=== PATIENT | female | born 1960 | race Caucasian/White ===

== ENCOUNTER 2017-06-13 09:16 | Outpatient (CLI) | payer BC | END 2017-06-13 09:17 | disposition home or self-care (01) | LOC: BICMAMMO 09:16 | PROVIDERS: ATTEND Family Medicine | DX: Z12.31 Encounter for screening mammogram for malignant neoplasm of breast (principal) | CPT/HCPCS: 77063; 77067 ==

== ENCOUNTER 2017-06-20 16:16 | Outpatient (CLI) | payer BC | END 2017-06-20 16:17 | disposition home or self-care (01) | LOC: BICMRI 16:16 | PROVIDERS: ATTEND Orthopaedic Surgery | DX: M47.22 Other spondylosis with radiculopathy, cervical region (principal); M99.81 Other biomechanical lesions of cervical region | CPT/HCPCS: 72141 ==

== ENCOUNTER 2017-07-16 15:38 | Outpatient (CLI) | payer BC ==
--- NOTE | 2017-07-16 16:46 | RAD ---
THREE VIEWS CERVICAL SPINE INCLUDING FLEXION AND EXTENSION VIEWS 07/16/17 HISTORY: Cervical HNP, patient states numbness in left fingers and chronic neck pain. COMPARISON: None available. FINDINGS: C1 to C7 is seen on the lateral view. T1 vertebral body is obscured. Vertebral body heights and inter vertebral disc spaces are within normal limits. No fracture or subluxation is appreciated. No abnorma l translational motion is seen between flexion and extension views. There are degenerative changes pr esent at C6-7 level with narrowing of the intervertebral disc space and osteophytes anteriorly. Preve rtebral soft tissues are within normal limits. IMPRESSION: 1. Obscuration of the T1 vertebral body, but there is otherwise no fracture or subluxation invol ving the cervical spine. 2. Degenerative changes at the C6-7 level. POS: [facility]
--- NOTE | 2017-07-16 18:05 | MRI ---
MRI OF LUMBAR SPINE WITHOUT CONTRAST 07/16/17 HISTORY: M51.16 - intervertebral disc disorder with radiculopathy. COMPARISON: None. FINDINGS: The kidneys are unremarkable. No hydronephrosis. No retroperitoneal adenopathy. Paraspinal musculature is normal. The background marrow signal of the lumbar spine is normal. Signal of the spinal cord is normal. The conus medullaris terminates at the mid L1 vertebral body. Levels are as follows: T12-L1: Normal. L1-2: Normal. L2-3: Mild circumferential disc bulge. Moderate facet arthropathy. The spinal canal is narrowed to ap proximately 8 mm. There is mild left moderate right sided neural foraminal narrowing. L3-4: Mild disc desiccation. Low grade circumferential disc bulge. Mild facet arthropathy. There is m oderate bilateral neural foraminal narrowing. There is abutment of the exiting right L3 nerve root. The spinal canal at this level measures approximately 1 cm. L4-5: Mild disc desiccation. Moderate facet arthropathy. Moderate to severe left and moderate right s ided neural foraminal narrowing. There is abutment of the exiting left L4 nerve root. L5-S1: Mild to moderate facet arthrosis. Low grade circumferential disc bulge. Moderate left and mild right sided neural foraminal narrowing. IMPRESSION: Mild to moderate spondylosis as described above at multiple levels with neural foraminal narrowing. S yordan canal is not significantly narrowed. POS: [facility]
== END 2017-07-16 15:39 | disposition home or self-care (01) ==
LOC: SCSMRI 15:38
PROVIDERS: ATTEND Specialist
DX: M51.16 Intervertebral disc disorders with radiculopathy, lumbar region (principal); M50.20 Other cervical disc displacement, unspecified cervical region; M47.26 Other spondylosis with radiculopathy, lumbar region; M99.83 Other biomechanical lesions of lumbar region; M47.892 Other spondylosis, cervical region
CPT/HCPCS: 72040; 72148

== ENCOUNTER 2018-04-16 08:05 | Outpatient (CLI) | payer BC ==
--- NOTE | 2018-04-16 08:59 | MRI ---
MRI CERVICAL SPINE WITHOUT CONTRAST: Date: 04/16/18 COMPARISON: None. HISTORY: Cervical radiculopathy and neck pain. Left finger numbness and tingling for 2 weeks. TECHNIQUE: Multiplanar, multisequence MR images were obtained of the cervical spine without contrast. FINDINGS: Generalized disc desiccation is seen. The vertebral bodies and intervertebral discs demonstrate juliana l height and alignment without fracture or subluxation. The visualized cord demonstrates normal signa l throughout. The craniocervical junction is unremarkable. The prevertebral and paraspinal soft tissu es are unremarkable. C2-3: Unremarkable. C3-4: A small disc osteophyte complex is seen. No posterior facet arthrosis. No central canal stenos is. Mild left neural foraminal stenosis. No right neural foraminal stenosis. C4-5: No significant bulge or protrusion. No posterior facet arthrosis. No neural foraminal or centr al canal stenosis. C5-6: A moderate disc osteophyte complex is seen. No posterior facet arthrosis. Moderate central can al stenosis. Moderate bilateral neural foraminal stenosis. C6-7: A moderate disc osteophyte complex is seen. No posterior facet arthrosis. Severe central canal stenosis. Severe bilateral neural foraminal stenosis. C7-T1: Unremarkable. IMPRESSION: Degenerative changes of the cervical spine as above. POS: [facility]
== END 2018-04-16 08:06 | disposition home or self-care (01) ==
LOC: BICMRI 08:05
PROVIDERS: ATTEND Specialist
DX: M47.22 Other spondylosis with radiculopathy, cervical region (principal)
CPT/HCPCS: 72141

== ENCOUNTER 2018-04-20 13:04 | Outpatient (CLI) | payer BC ==
--- NOTE | 2018-04-20 15:31 | MRI ---
MRI LUMBAR SPINE WITHOUT CONTRAST: HISTORY: Low back pain with tingling running down the left leg for a year. COMPARISON: 07/16/2017 TECHNIQUE: Multiplanar, multisequence MR images were obtained of the lumbar spine without contrast. FINDINGS: Generalized disk desiccation is seen. The vertebral bodies demonstrate normal height and alignment w ithout fracture or subluxation. The prevertebral and paraspinal soft tissues are unremarkable. The conus medullaris terminates normally at T12-L1. T12-L1: Unremarkable. L1-L2: Unremarkable. L2-L3: A small generalized concentric disk bulge is seen. No posterior facet arthrosis. Mild centr al canal stenosis. No neural foraminal stenosis. L3-L4: A moderate right lateral protruding is seen. No posterior facet arthrosis. No central canal stenosis. Moderate right neural foraminal stenosis. No left neural foraminal stenosis. Disk protr usion has worsened compared to the prior examination. L4-L5: A minimal generalized concentric disk bulge is seen. No posterior facet arthrosis. Mild lazarus tral canal stenosis. Mild bilateral neural foraminal stenosis. L5-S1: A small disk osteophyte complex is seen. Mild bilateral posterior facet arthrosis. Mild lazarus tral canal stenosis. Moderate left and mild right neural foraminal stenosis. IMPRESSION: Degenerative changes of the lumbar spine, as above. POS: [facility]
== END 2018-04-20 13:05 | disposition home or self-care (01) ==
LOC: TBSIIMAG 13:04
PROVIDERS: ATTEND Specialist
DX: M43.16 Spondylolisthesis, lumbar region (principal); M47.816 Spondylosis without myelopathy or radiculopathy, lumbar region
CPT/HCPCS: 72148

== ENCOUNTER 2018-05-04 10:28 | Outpatient (CLI) | payer BC ==
[2018-05-04 11:49] LABS: Hemoglobin 14.3 g/dL (12.0-16.0); Mean Corpuscular HGB CONC 34.4 g/dL (32.0-36.0); Mean Corpuscular Hemoglobin 29.3 pg (27.0-31.0); Mean Corpuscular Volume 85.3 fL (78.0-98.0); Mean Platelet Volume 8.8 fL (7.4-10.4); Platelet Count 188 thou/uL (130-400); RBC Distribution Width 12.7 % (11.5-14.5); Red Blood Cell (RBC) Count 4.87 mill/uL (4.20-5.40); White Blood Cell (WBC) Count 6.6 thou/uL (4.8-10.8)
[2018-05-04 11:54] LABS: Prothrombin Time 13.2 SEC (12.0-14.7)
[2018-05-04 11:55] LABS: PTT 29.4 SEC (22.9-36.1)
[2018-05-04 12:09] LABS: Anion Gap 13 mmol/L (10-20); BUN (Urea Nitrogen) 10 mg/dL (9.8-20.1); Calc. Creatinine Clearance 0 mL/min (70-130); Calcium 9.5 mg/dL (7.8-10.44); Carbon Dioxide 24 mmol/L (22-29); Chloride 104 mmol/L (98-107); Estimated GFR-MDRD 59; Glucose 97 mg/dL (70-105); Potassium 3.3 mmol/L (3.5-5.1); Sodium 138 mmol/L (136-145)
--- NOTE | 2018-05-04 17:27 | EKG ---
Test Reason : Blood Pressure : / mmHG Vent. Rate : 070 BPM Atrial Rate : 070 BPM P-R Int : 152 ms QRS Dur : 088 ms QT Int : 456 ms P-R-T Axes : 021 025 -24 degrees QTc Int : 492 ms Normal sinus rhythm Nonspecific T wave abnormality Prolonged QT Abnormal ECG When compared with ECG of 08-MAR-2016 14:07, No significant change was found Confirmed by KIRA ALAMO ([id number]) on 05/04/2018 5:27:00 PM Referred By: JENNIE Confirmed By:KIRA ALAMO
== END 2018-05-04 10:29 | disposition home or self-care (01) ==
LOC: LABBT 10:28
PROVIDERS: ATTEND Surgery
DX: Z01.818 Encounter for other preprocedural examination (principal); M54.12 Radiculopathy, cervical region; M48.02 Spinal stenosis, cervical region
CPT/HCPCS: 80048; 85027; 85610; 85730; 93005; 93010

== ENCOUNTER 2018-05-07 09:18 | Day surgery (SDC) | payer BC ==
[2018-05-04 11:07] VITALS: BMI 28.8
[2018-05-07] MEDS ORDERED: CEFAZOLIN 2 GM/50 ML BAG ONE (10:48)
[2018-05-07] MEDS ORDERED: Fentanyl 100 MCG/2 ML VIAL ONE ×4 (11:17→17:41)
[2018-05-07] MEDS ORDERED: Propofol 1,000 MG/100 ML VIAL IV ONE (13:49)
[2018-05-07] MEDS ORDERED: Thrombin 5000 UNITS/5 ML VIAL ONE (13:53)
[2018-05-07] MEDS ORDERED: Sodium Chloride 0.9% 10 ML ONE (14:00)
[2018-05-07] MEDS ORDERED: Ondansetron PF 4 MG/2 ML Vial ONE (16:23)
[2018-05-07] MEDS ORDERED: Lidocaine 1% PF 5 ML VIAL ONE (16:23)
[2018-05-07] MEDS ORDERED: Glycopyrrolate 0.2 MG/ML 5 ML SYRINGE ONE (16:23)
[2018-05-07] MEDS ORDERED: Dexamethasone 20 MG/5 ML VIAL ONE (16:23)
[2018-05-07] MEDS ORDERED: Fleet Enema 133 ML BOT PR PRN (16:35)
[2018-05-07] MEDS ORDERED: Mag-Al 1200 mg/1200 mg/30 ML UDCUP PO PRN (16:35)
[2018-05-07] MEDS ORDERED: Acetaminophen 325 MG TAB PO PRN (16:35)
[2018-05-07] MEDS ORDERED: traMADol HCl 50 MG TAB PO PRN (16:35)
[2018-05-07] MEDS ORDERED: Morphine 4 MG/ML VIAL SLOW IVP PRN (16:35)
[2018-05-07] MEDS ORDERED: HYDROcodone/Acetaminophen 7.5/325 mg Tablet PO PRN (16:35)
[2018-05-07] MEDS ORDERED: Milk Of Magnesia 30 ML UDCUP PO PRN (16:35)
[2018-05-07] MEDS ORDERED: Bisacodyl 10 MG SUPP PR PRN (16:35)
[2018-05-07] MEDS ORDERED: Ondansetron HCl/PF 4 MG in Sodium Chloride 0.9% 50 ML IVPB PRN (16:37)
[2018-05-07] MEDS ORDERED: Lorazepam 1 MG TAB PO PRN (16:38)
[2018-05-07] MEDS ORDERED: Promethazine HCl 25 MG/ML VIAL SLOW IVP PRN (16:46)
[2018-05-07] MEDS ORDERED: Promethazine HCl 25 MG/ML VIAL IM PRN (16:46)
[2018-05-07] MEDS ORDERED: Ondansetron HCl/PF 4 MG/2 ML Vial IVP PRN (16:46)
[2018-05-07] MEDS ORDERED: PACU-Morphine 4MG/ML VIAL SLOW IVP PRN (16:46)
[2018-05-07] MEDS ORDERED: Morphine Sulfate 2 MG/ML SYRINGE SLOW IVP PRN (16:46)
[2018-05-07] MEDS ORDERED: HYDROmorphone 2 MG/ML VIAL SLOW IVP PRN (16:46)
[2018-05-07] MEDS ORDERED: Albuterol Sulfate 2.5 mg/3 ml Neb ONE (17:59)
[2018-05-07] MEDS ORDERED: Naloxone HCl 0.4 mg/ml Vial ONE (18:04)
[2018-05-07] MEDS: Sodium Chloride 0.9% 1,000 ML IV SCH (20:40)
[2018-05-07] MEDS: CEFAZOLIN 2 GM/50 ML BAG IVPB SCH (20:40)
[2018-05-07] MEDS: tiZANidine HCl 4 MG TAB PO PRN (20:48)
[2018-05-07] MEDS: Acetaminophen/Codeine 30-300mg Tablet PO PRN (20:48)
[2018-05-07] MEDS ORDERED: Montelukast Sodium 10 mg Tablet PO SCH (21:00)
[2018-05-08] MEDS: Sodium Chloride 0.9% 1,000 ML IV SCH ×2 (01:02→09:23)
[2018-05-08] MEDS: Acetaminophen/Codeine 30-300mg Tablet PO PRN ×3 (01:33→11:22)
[2018-05-08] MEDS: CEFAZOLIN 2 GM/50 ML BAG IVPB SCH ×2 (03:31→11:22)
[2018-05-08] MEDS: tiZANidine HCl 4 MG TAB PO PRN ×2 (05:32→11:21)
[2018-05-08] MEDS ORDERED: Diltiazem HCl CD 300 mg Capsule PO SCH (09:00)
[2018-05-08] MEDS ORDERED: Multivit, Therapeutic 1 TAB PO SCH (09:00)
[2018-05-08] MEDS ORDERED: Escitalopram Oxalate 20 mg Tablet PO SCH (09:00)
[2018-05-08] MEDS ORDERED: Atorvastatin Calcium 10 MG TAB PO SCH (09:00)
[2018-05-08 12:15] VITALS: BP 134/66; TEMP 98.5
--- NOTE | 2018-05-08 13:20 | PRG ---
DATE OF SERVICE: 05/08/2018 Ms. Parrish is postoperative day #1, C5 to C7 ACDF. She is doing very well. She states there is resolution in her arm pain. She has moderate dysphonia, but is swallowing. Her drain output was 50 mL last night and we will watch her this morning taper down or remove the drain, we will plan for dismissal. We went over both interim postoperative issues and neurologically, she is doing very well. Job ID: [id number]
--- NOTE | 2018-05-10 21:29 | OP ---
DATE OF PROCEDURE: 05/07/2018 OPERATING ROOM: OR 12. WOUND CLASSIFICATION: Type 1 wound. RAILROAD CAR CHECKER: Ollie Álvarez PA-C. PREPROCEDURE DIAGNOSES: Cervical stenosis with neck and arm pain and cervical radiculopathy. POSTPROCEDURE DIAGNOSES: Cervical stenosis with neck and arm pain and cervical radiculopathy. PROCEDURES PERFORMED: 1. Anterior C5-C6 and C6-C7 diskectomies for decompression of spinal cord and nerve roots. 2. Preparation of the endplates for arthrodesis with placement of interbody spacer packed with graft, C5-C6 and C6-C7. 3. Anterior cervical plate and screw fixation, C5, C6, and C7. 4. Use of operating microscope for microdissection. DESCRIPTION OF PROCEDURE: After informed consent was obtained from the patient, the patient was brought to OR 12. Proper patient pause and identification were carried out. She was placed under excellent general endotracheal anesthesia and positioned supine on the OR table. All appropriate points were padded. We identified the right anterior oblique negar that would allow for approach to the C5, C6, C7 segments and this region was sterilely cleansed, prepared, and draped. Proper patient pause and identification were carried out. The wound was then opened with a combination of sharp, monopolar, and blunt dissection. We proceeded lateral to the tracheoesophageal bundle and medial to the right carotid sheath. We identified the prevertebral layer of deep cervical fascia and the longus colli muscles were identified as well and swept laterally. Retraction was placed. Microscope was brought onto the field and distraction of C5-C6 occurred and diskectomy was performed at C5-C6 with excellent decompression of the common dural tube and the bilateral C6 nerve roots. We then turned our attention to the placement of interbody spacer packed with local bone autograft obtained from same incision allograft at C5-C6 for arthrodesis. We then turned our attention to release of the distraction at C5-C6 and distraction at C6-C7 was then performed and we had excellent decompression, following diskectomy at C6-C7, of the bilateral C7 nerve roots. Copious irrigation occurred throughout. We maximized hemostasis. Interbody spacer of appropriate dimension was placed for arthrodesis, packed with graft. This was done at C5-C6 and C6-C7. Anterior cervical plate and screw fixation then occurred at C5, C6, C7, and the wound was then closed following final tightening after satisfactory hemostasis and copious irrigation. The patient then emerged from anesthesia. Job ID: [id number]
[2018-05-14] MEDS ORDERED: Alendronate Sodium 70 mg Tablet PO SCH (09:00)
== END 2018-05-08 14:11 | disposition home or self-care (01) ==
LOC: SDC 09:18 → SURG B 16:34 → SDC 05-08 14:11
PROVIDERS: ATTEND Surgery
DX: M54.12 Radiculopathy, cervical region (principal); M48.02 Spinal stenosis, cervical region
CPT/HCPCS: 76001; C1713; C1776; J1100; J2001; J2310; J2405; J2704; J3010; J3490; J7611

== ENCOUNTER 2018-06-04 17:00 | Outpatient (CLI) | payer BC | END 2018-06-04 17:01 | disposition home or self-care (01) | LOC: SLEEPLAB 17:00 | PROVIDERS: ATTEND Internal Medicine | DX: G47.33 Obstructive sleep apnea (adult) (pediatric) (principal); R51 Headache; K21.9 Gastro-esophageal reflux disease without esophagitis; R35.1 Nocturia; E66.9 Obesity, unspecified; I10 Essential (primary) hypertension; E11.9 Type 2 diabetes mellitus without complications | CPT/HCPCS: 95806 ==

== ENCOUNTER 2018-06-15 12:54 | Outpatient (CLI) | payer BC | END 2018-06-15 12:55 | disposition home or self-care (01) | LOC: BICMAMMO 12:54 | PROVIDERS: ATTEND Family Medicine | DX: Z12.31 Encounter for screening mammogram for malignant neoplasm of breast (principal); R92.1 Mammographic calcification found on diagnostic imaging of breast; Z98.890 Other specified postprocedural states | CPT/HCPCS: 77063; 77067 ==

== ENCOUNTER 2018-06-24 13:59 | Outpatient (CLI) | payer BC ==
--- NOTE | 2018-06-24 15:24 | RAD ---
RADIOGRAPH CERVICAL SPINE 4 VIEWS: DATE: 06-24-18 HISTORY: 58-year-old female with cervicalgia. Other cervical disc degeneration. Cervical radiculopathy. TECHNIQUE: Swimmer's, lateral, open mouth and AP. COMPARISON: 07-16-17 FINDINGS: There are new anterior metallic plate and screws at C5-6-7. There are metallic markers for interbody grafts at the C5-6 and C6-7 disc spaces. Alignment is normal. Vertebral body heights are maintained. There is no disc space narrowing at C2-3, C3-4, and C4-5. Mild DJD at right atlantoaxial joint. There is moderate DJD at left atlantoaxial joint. Multilevel bilateral facet DJD of varying degrees. Align ment is normal on swimmer's view. IMPRESSION: 1. Status post anterior cervical discectomy and fusion at C5-6-7. 2. Cervical spondylosis: multilevel bilateral facet osteoarthrosis. STEPHANIE POS: [facility]
== END 2018-06-24 14:00 | disposition home or self-care (01) ==
LOC: TBSIIMAG 13:59
PROVIDERS: ATTEND Surgery
DX: M50.10 Cervical disc disorder with radiculopathy, unspecified cervical region (principal); M48.02 Spinal stenosis, cervical region; M47.22 Other spondylosis with radiculopathy, cervical region; Z98.1 Arthrodesis status
CPT/HCPCS: 72040

== ENCOUNTER 2019-09-22 11:58 | Outpatient (CLI) | payer BC ==
--- NOTE | 2019-09-22 12:23 | RAD ---
Exam: XR Knee Lt 4 View STANDARD HISTORY: Osteoarthritis. Patient states not inferior to the patella COMPARISON: 04/03/2016 FINDINGS: Minimal scattered osteophytes are present. There is no joint space narrowing present. No acute fracture, dislocation, or other acute osseous abnormality is identified. IMPRESSION: 1. No acute osseous abnormality is identified. 2. No abnormality is seen inferior to the level of the patella on radiographic evaluation. If there i s a persistent palpable abnormality and if there is clinical concern, MRI can be performed for further evaluation.
== END 2019-09-22 11:59 | disposition home or self-care (01) ==
LOC: BICRAD 11:58
PROVIDERS: ATTEND Family Medicine
DX: M19.90 Unspecified osteoarthritis, unspecified site (principal)

== ENCOUNTER 2020-04-03 12:18 | Outpatient (CLI) | payer BC ==
--- NOTE | 2020-04-03 12:57 | RAD ---
Cervical spine 6 views: 04/03/2020 COMPARISON: 06/24/2018 HISTORY: Pain radiating down the left arm FINDINGS: The neutral lateral exam demonstrates anterior discectomy and fusion hardware at the C5-6/C 6-7 level. Anterolisthesis at C4-5 on the neutral imaging measures 2-3 mm. Flexion imaging demonstrates anterolisthesis at C4-5 measuring 4 mm. There is mild disc space narrowing and anterior osteophyte formation at C4-5. On the extension imaging anterolisthesis at C4-5 measures less than 2 mm. Open-mouth odontoid view demonstrates a normal-appearing dens and C1-2 articulation. Multilevel bilateral facet and uncovertebral osteophyte formation noted, left greater than right. Nor mal alignment noted at the cervicothoracic junction. No prevertebral soft tissue swelling. IMPRESSION: Multilevel degenerative and postoperative changes within the cervical spine as detailed a choco.
== END 2020-04-03 12:19 | disposition home or self-care (01) ==
LOC: BICRAD 12:18
PROVIDERS: ATTEND Nurse Practitioner Family
DX: M47.22 Other spondylosis with radiculopathy, cervical region (principal); Z98.890 Other specified postprocedural states
CPT/HCPCS: 72050

== ENCOUNTER 2020-06-28 13:04 | Outpatient (CLI) | payer BC ==
--- NOTE | 2020-06-28 13:34 | RAD ---
XR Chest Pa Lat STANDARD History: Acute bronchitis Comparison: None. Findings: Lungs are clear. No pneumothorax or effusion. Cardiac silhouette and mediastinal contours a re within normal limits. No acute osseous abnormality. Impression: No acute intrathoracic abnormality.
== END 2020-06-28 13:05 | disposition home or self-care (01) ==
LOC: BICRAD 13:04
PROVIDERS: ATTEND Family Medicine
DX: J20.9 Acute bronchitis, unspecified (principal)
CPT/HCPCS: 71046

== ENCOUNTER 2020-10-25 12:56 | Outpatient (CLI) | payer BC | END 2020-10-25 12:57 | disposition home or self-care (01) | LOC: BICMAMMO 12:56 | PROVIDERS: ATTEND Family Medicine | DX: Z12.31 Encounter for screening mammogram for malignant neoplasm of breast (principal); Z91.89 Other specified personal risk factors, not elsewhere classified | CPT/HCPCS: 77063; 77067 ==

== ENCOUNTER 2021-03-09 13:52 | Outpatient (CLI) | payer BC | END 2021-03-09 13:53 | disposition home or self-care (01) | LOC: BICRAD 13:52 | PROVIDERS: ATTEND Family Medicine | DX: M54.6 Pain in thoracic spine (principal); M47.814 Spondylosis without myelopathy or radiculopathy, thoracic region | CPT/HCPCS: 72070 ==

== ENCOUNTER 2021-04-09 10:32 | Emergency (ER) | payer BC ==
[2021-04-09 11:02] LABS: Bacteria/HPF 4+ HPF (None Seen); Bilirubin Negative (Negative); Blood, Urine Negative (Negative); Clarity Turbid (Clear); Glucose, Urine (Dipstick) Normal (Negative); Ketone, Urine Negative (Negative); Leukocyte 25 Leu/uL (Negative); Nitrite 1+ (Negative); Protein, Urine (Dipstick) 10 mg/dL (Neg-Trace); RBC/HPF 0-3 HPF (0-3); Specific Gravity, Urine 1.022 (1.002-1.036); Urobilinogen Normal mg/dL (Less than 2)
[2021-04-09] MEDS ORDERED: Iopamidol-370 76% 500 ML 1 ML ONE (11:03)
[2021-04-09 11:25] LABS: #Basophils 0.1 thou/uL (0.0-0.2); #Eosinphils 0.2 thou/uL (0.0-0.7); #Lymphocytes 2.7 thou/uL (1.20-3.40); #Monocytes 1.4 thou/uL (0.11-0.59); #Neutrophils 12.6 thou/uL (1.40-6.50); %Basophils 0.6 % (0.0-1.0); %Eosinophils 1.2 % (0.0-10.0); %Monocytes 8.1 % (0.0-10.0); %Neutrophils 74.2 % (42.0-75.0); Hemoglobin 12.9 g/dL (12.0-16.0); Mean Corpuscular HGB CONC 31.5 g/dL (32.0-36.0); Mean Corpuscular Hemoglobin 27.3 pg (27.0-31.0); Mean Corpuscular Volume 86.8 fL (78.0-98.0); Mean Platelet Volume 7.8 fL (7.4-10.4); Platelet Count 210 thou/uL (130-400); RBC Distribution Width 14.6 % (11.5-14.5); Red Blood Cell (RBC) Count 4.73 mill/uL (4.20-5.40)
[2021-04-09 11:50] LABS: ALT (SGPT) 20 U/L (8-55); AST (SGOT) 15 U/L (5-34); Alkaline Phosphatase 66 U/L (40-110); Anion Gap 12 mmol/L (10-20); BUN (Urea Nitrogen) 10 mg/dL (9.8-20.1); Bilirubin, Total 0.5 mg/dL (0.2-1.2); Calc. Creatinine Clearance 0 mL/min (70-130); Calcium 9.1 mg/dL (7.8-10.44); Carbon Dioxide 21 mmol/L (22-29); Chloride 108 mmol/L (98-107); Globulin 3.2 g/dL (2.4-3.5); Glucose 95 mg/dL (70-105); Potassium 3.9 mmol/L (3.5-5.1); Protein, Total 7.2 g/dL (6.0-8.3); Sodium 137 mmol/L (136-145)
[2021-04-09] MEDS ORDERED: Ketorolac Tromethamine 30 MG/ML VIAL ONE (12:12)
== END 2021-04-09 13:55 | disposition home or self-care (01) ==
LOC: ERS 10:32
DX: K52.9 Noninfective gastroenteritis and colitis, unspecified (principal); N39.0 Urinary tract infection, site not specified; I10 Essential (primary) hypertension; E78.5 Hyperlipidemia, unspecified; Z79.899 Other long term (current) drug therapy
CPT/HCPCS: 36415; 74177; 80053; 81003; 81015; 85025; 96374; J1885; Q9967

== ENCOUNTER 2021-05-01 10:30 | Outpatient (CLI) | payer BC ==
[2021-05-01 16:46] LABS: SARS-CoV-2 PCR by NAA Not Detected (NotDetected)
== END 2021-05-01 10:31 | disposition home or self-care (01) ==
LOC: LABBT 10:30
PROVIDERS: ATTEND Internal Medicine Gastroenterology
DX: Z01.812 Encounter for preprocedural laboratory examination (principal); Z20.822 Contact with and (suspected) exposure to COVID-19
CPT/HCPCS: U0003; U0005

== ENCOUNTER 2021-05-04 06:55 | Day surgery (SDC) | payer BC ==
[2021-05-03 09:36] VITALS: BMI 28.1
[2021-05-04] MEDS ORDERED: PROPOFOL 200 MG/20 ML VIAL ONE (09:34)
== END 2021-05-04 10:17 | disposition home or self-care (01) ==
LOC: SDC 06:55
PROVIDERS: ATTEND Internal Medicine Gastroenterology
PROC: 0DBH8ZX Excision of Cecum, Via Natural or Artificial Opening Endoscopic, Diagnostic (ICD-10-PCS; principal; 2021-05-04)
DX: K63.3 Ulcer of intestine (principal); K52.9 Noninfective gastroenteritis and colitis, unspecified; K57.30 Diverticulosis of large intestine without perforation or abscess without bleeding; K64.9 Unspecified hemorrhoids; G47.33 Obstructive sleep apnea (adult) (pediatric); E78.5 Hyperlipidemia, unspecified; I10 Essential (primary) hypertension; K21.9 Gastro-esophageal reflux disease without esophagitis; G43.909 Migraine, unspecified, not intractable, without status migrainosus; Z79.2 Long term (current) use of antibiotics; Z79.899 Other long term (current) drug therapy
CPT/HCPCS: 88305; J2704

== ENCOUNTER 2021-11-21 14:21 | Outpatient (CLI) | payer BC | END 2021-11-21 14:22 | disposition home or self-care (01) | LOC: BICMAMMO 14:21 | PROVIDERS: ATTEND Family Medicine | DX: Z12.31 Encounter for screening mammogram for malignant neoplasm of breast (principal); M81.0 Age-related osteoporosis without current pathological fracture; M85.851 Other specified disorders of bone density and structure, right thigh; Z91.89 Other specified personal risk factors, not elsewhere classified | CPT/HCPCS: 77063; 77067; 77080 ==

== ENCOUNTER 2022-05-08 09:07 | Outpatient (CLI) | payer BC | END 2022-05-08 09:08 | disposition home or self-care (01) | LOC: NM 09:07 | PROVIDERS: ATTEND Internal Medicine Gastroenterology | DX: K21.9 Gastro-esophageal reflux disease without esophagitis (principal); R11.2 Nausea with vomiting, unspecified | CPT/HCPCS: 78264; A9541 ==

== ENCOUNTER 2022-06-25 08:53 | Outpatient (CLI) | payer BC | END 2022-06-25 08:54 | disposition home or self-care (01) | LOC: RAD 08:53 | PROVIDERS: ATTEND Physician Assistant Medical | DX: K21.00 Gastro-esophageal reflux disease with esophagitis, without bleeding (principal); R13.10 Dysphagia, unspecified; K59.09 Other constipation; K44.9 Diaphragmatic hernia without obstruction or gangrene | CPT/HCPCS: 74220 ==

== ENCOUNTER 2023-01-17 12:45 | Outpatient (CLI) | payer BC | END 2023-01-17 12:46 | disposition home or self-care (01) | LOC: BICMAMMO 12:45 | PROVIDERS: ATTEND Family Medicine | DX: Z12.31 Encounter for screening mammogram for malignant neoplasm of breast (principal); Z91.89 Other specified personal risk factors, not elsewhere classified | CPT/HCPCS: 77063; 77067 ==